=== PATIENT | female | born 2000 | race Caucasian/White ===

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

== ENCOUNTER 2020-08-18 10:46 | Emergency (ER) | payer BC, SELFPAY ==
--- NOTE | ~2020-08-18 | CT_ITS ---
EXAMINATION: CT abdomen pelvis w con DATE: 08/18/2020 12:51 INDICATION: Upper abdominal pain. Nausea. TECHNIQUE: Computed tomography (CT) of the abdomen and pelvis was performed with 100 mL Omnipaque 350 intravenous contrast. Automated exposure control and iterative reconstruction technique were employe d. The dose-length product was 631.74 mGy-cm. COMPARISON: None. FINDINGS: The visualized portions of the lung bases are clear without pneumonia or pleural effusion. The heart size is normal. No pericardial effusion. The liver, gallbladder, spleen, pancreas, adrenal glands, and kidneys are normal. There are no dilated loops of bowel. The appendix is normal. There ar e no pathologically enlarged lymph nodes. There is no free intraperitoneal fluid. There is subcutaneo us gas in the right buttock, which may be an injection site. The bones are unremarkable. IMPRESSION: 1. No etiology for the patient's symptoms. Reviewed, dictated and finalized at location A. LATION EXTRUDER OPERATOR
[2020-08-18 10:52] VITALS: BP 151/89; PULSE 100; RESP 17; TEMP 36.5; O2SAT 100
--- NOTE | 2020-08-18 11:05 | ED.ABDPAIN ---
HPI - Abdominal Pain General Chief Complaint: Abdominal Pain Stated Complaint: abd pain Time Seen by Provider: 08/18/20 11:05 History of Present Illness HPI narrative: Epigastric and LUQ pain for the past 2 weeks. Burning in quality. No radiation. Associated with nausea. One loose stool yesterday. Saw PCP 4 days ago and was started on Omeprazole without improvement. She does mention that she is currently missing a test to be here and seems quite anxious. Related Data Home Medications Medication Instructions Recorded Confirmed L norgest/e.estradiol-e.estrad 1 tablet PO DAILY 12/12/19 12/26/19 [Daysee] omeprazole magnesium [Prilosec OTC] 20 mg PO DAILY 12/12/19 12/26/19 Allergies Allergy/AdvReac Type Severity Reaction Status Date / Time Cat Dander Allergy Mild HIVES, Uncoded 08/18/20 11:04 ITCHING Review of Systems Review of Systems: All systems reviewed & are unremarkable except as noted in HPI and below Constitutional: Constitutional: Denies fever(s) Cardiovascular: Cardiovascular: Denies chest pain Respiratory: Respiratory: Denies dyspnea Gastrointestinal: Gastrointestinal: Reports abdominal pain, Denies constipation, Reports nausea and Denies vomiting Genitourinary: Genitourinary: Denies hematuria and Denies dysuria Comments: Dark urine Musculoskeletal: Musculoskeletal: Denies back pain Neurologic: Denies dizziness and Denies weakness [facility] Past Medical History Medical History (Updated 08/18/20 @ 13:10 by Anand Magdaleno MD) Asthma GERD (gastroesophageal reflux disease) Family History Family History Other Diabetes mellitus Family history of arthritis Hypertension Social History Social History Smoking status: Never smoker Alcohol intake: current Substance use: never Substance use type: does not use Gender identity (if verbalized by the patient): Female Exam Const: General: healthy appearing, no acute distress and alert Orientation/consciousness: patient oriented x3 HENMT: Head: normal to inspection Neck: Neck: normal visual inspection and no lymphadenopathy Chest: Chest palpation & inspection: no tenderness Resp: Effort & Inspection: normal respiratory effort Auscultation: clear to auscultation bilaterally, no rales, no rhonchi and no wheezes Cardio: Jugular venous distension: no JVD Rate: regular rate Rhythm: regular rhythm Heart sounds: no murmurs GI: Inspection: non-distended GI Palp: Yes Soft to palpation, Yes Tenderness to palpation present (GI) (LUQ, minmal), No Guarding due to palpation present (GI) and No Rebound tenderness present Skin: General skin exam: normal color Neuro: General: patient oriented x3, moves all extremities, no focal motor deficits and CN's II-XI intact bilaterally Speech: normal speech Extrem: General: normal to inspection and no edema Psych: Appearance: well kempt Affect: Anxious affect present Course Vital Signs Vital signs: Vital Signs Temperature 36.5 C 08/18/20 10:52 Pulse Rate 100 08/18/20 10:52 Respiratory Rate 17 08/18/20 10:52 Blood Pressure 151/89 H 08/18/20 10:52 Pulse Oximetry 100 08/18/20 10:52 Temperature 36.5 C 08/18/20 10:52 Pulse Rate 87 08/18/20 14:05 Respiratory Rate 18 08/18/20 14:05 Blood Pressure 117/78 08/18/20 14:05 Pulse Oximetry 100 08/18/20 14:05 MDM - Abdominal Pain MDM Narrative Medical decision making narrative: She reports no improvement. Tolerating PO. Differential Diagnosis Differential diagnosis: Likely constipation, gastroenteritis, pancreatitis and other (IBS, PUD) Medical Records Attestation: I reviewed the patient's medical records. Lab Data Attestation: I reviewed the patient's lab results. Result diagrams: 08/18/20 11:03 08/18/20 11:03 Labs: Lab Results 08/18/20 08/18/20 08/18/20
[2020-08-18 11:12] LABS: Basophils Percent Auto 0.6 % (0.2-1.2); Eosinophils Absolute Auto 0.1 K/mm3 (0-0.3); Eosinophils Percent Auto 1.4 % (0-4.4); Hematocrit 42.3 % (37.0-47.0); Hemoglobin 14.1 g/dL (12.0-15.0); Immature Granulocyte Absolute 0.01 K/mm3 (0.00-0.031); Immature Granulocyte Percent A 0.2 % (0-0.5); Lymphocytes Absolute Auto 2.37 K/mm3 (0.9-3.2); Lymphocytes Percent Auto 46.8 % (18.3-44.2); Mean Corpuscular HGB Conc 33.3 g/dl (32-36); Monocytes Absolute Auto 0.3 K/mm3 (0.1-0.6); Monocytes Percent Auto 5.5 % (2.6-8.5); Neutrophils Absolute Auto 2.3 K/mm3 (1.3-6.7); Neutrophils Percent Auto 45.5 % (45.5-73.1); Platelet Count Result 224 k/mm3 (150-375); Red Cell Distribution Width 11.9 % (11.5-14.5); White Blood Count 5.1 K/mm3 (4.5-10.0)
[2020-08-18 11:26] LABS: Add Urine Microscopic? YES; Appearance Urine Cloudy (Clear); Bacteria Urine Trace /hpf; Bilirubin Urine Negative (Negative); Blood Urine Negative (Negative); Color Urine Yellow (Yellow); Glucose Urine UA Negative (Negative); Ketones Urine Negative (Negative); Leukocyte Esterase Ur 3+ LEU/UL (Negative); Mucus Urine Rare /lpf; Nitrate Urine Negative (Negative); Protein Urine Negative (Negative); Specific Grav Ur 1.012 (1.001-1.035); Squamous Epithelial Cell Urine Few /hpf (Few); Urobilinogen Urine Negative mg/dL (<2.0); WBC Urine 0-3 /hpf
[2020-08-18 11:28] LABS: Alanine Aminotransferase 40 U/L (4-35); Albumin Level 4.7 g/dL (3.5-5.1); Alkaline Phosphatase 55 U/L (38-126); Anion Gap 8 mmol/L (8-16); Aspartate Amino Transferase 35 U/L (14-36); Bilirubin,Total 0.6 mg/dL (0.2-1.3); Blood Urea Nitrogen 8 mg/dL (7-17); Calcium 9.6 mg/dL (8.4-10.2); Carbon Dioxide 26 mmol/L (22-30); Chloride 107 mmol/L (98-107); Estimated CRCL calculation 112 ml/min; Estimated Glomerular Filt Rate > 60; Glucose 101 mg/dL (65-105); Lipase 45 U/L (23-300); Potassium 4.2 mmol/L (3.4-5.0); Sodium 141 mmol/L (137-145)
[2020-08-18] MEDS: SODIUM CHLORIDE 0.9% IV 1,000 ML 999 ML IV CONT (11:29)
[2020-08-18] MEDS: DICYCLOMINE HCL INJ 20 MG/2 ML VIAL IM (11:29)
[2020-08-18] MEDS: ONDANSETRON INJ 4 MG/2 ML VIAL IV PUSH (11:35)
[2020-08-18] MEDS: PANTOPRAZOLE SODIUM IV 40 MG VIAL IV PUSH (13:12)
[2020-08-18 14:05] VITALS: BP 117/78; PULSE 87; RESP 18; O2SAT 100
== END 2020-08-18 14:06 | disposition home or self-care (01) ==
PROVIDERS: Emergency Medicine; Emergency Provider Emergency Medicine; PCP Family Medicine
DX: R10.13 Epigastric pain (principal); J45.909 Unspecified asthma, uncomplicated; K21.9 Gastro-esophageal reflux disease without esophagitis
CPT/HCPCS: 36415; 74177; 80053; 81001; 81025; 83690; 85025; 96361; 96372; 96374; 96375; 99284; A9270; C9113; J0500; J2405; J7030; Q9967

== ENCOUNTER → 2020-08-23 01:25 | Outpatient (CLI) | payer BC, SELFPAY ==
[2020-08-23 20:38] LABS: SARS-CoV-2 RNA PCR Negative
== END ==
PROVIDERS: PCP Family Medicine; Visit Provider Internal Medicine Gastroenterology
DX: Z01.812 Encounter for preprocedural laboratory examination (principal); Z20.822 Contact with and (suspected) exposure to COVID-19
CPT/HCPCS: C9803; U0003; U0005

== ENCOUNTER 2020-08-27 01:24 | Day surgery (SDC) | payer BC, SELFPAY ==
[2020-08-22 10:19] VITALS: BMI 31.1
[2020-08-27 12:29] VITALS: BP 123/75; PULSE 104; RESP 16; TEMP 36.8; O2SAT 98; BMI 31.0
[2020-08-27] MEDS: LACTATED RINGERS 1,000 ML 150 ML IV CONT (12:36)
--- NOTE | 2020-08-27 13:05 | WPDANESEPPF ---
Anes - Initial Pre Proc Eval Procedure: Operation Date: 08/27/20 13:00 Proposed Procedures p Esophagogastroduodenoscopy - Gm Ha MD Date/Time: 08/27/20 13:05 Surgeon: Gm Ha MD Pre Op Diagnosis: left upper quad pain Patient Data Age: 20 Gender: F Height: 5 ft 7 in Weight: 89.9 kg Last Vital Signs Temp 36.8 C 08/27/20 12:29 Pulse 104 H 08/27/20 12:29 Resp 16 08/27/20 12:29 BP 123/75 08/27/20 12:29 Pulse Ox 98 08/27/20 12:29 Allergies Allergy/AdvReac Type Severity Reaction Status Date / Time Cat Dander Allergy Mild HIVES, Uncoded 08/27/20 12:28 ITCHING Home Medications Medication Instructions Recorded Confirmed Type L norgest/e.estradiol-e.estrad 1 tablet PO DAILY 12/12/19 08/22/20 History [Daysee] omeprazole magnesium [Prilosec OTC] 20 mg PO DAILY 12/12/19 08/22/20 History albuterol sulfate INHALATION PRN PRN 08/22/20 History Patient hx anesthesia problems: none Family hx anesthesia problems: none PMFSH Past Medical History Medical History Asthma GERD (gastroesophageal reflux disease) Surgical History Surgical History (Updated 08/27/20 @ 13:06 by Gene Martin MD) H/O laparoscopy Family History Family History Other Diabetes mellitus Family history of arthritis Hypertension Social History Social History Smoking status: Never smoker Alcohol intake: current Substance use: never Substance use type: does not use Gender identity (if verbalized by the patient): Female Anes - Eval Final PreProcedure Day of Procedure 08/27/20 13:05 Patient weight: obese Heart: regular rate and rhythm Lungs: clear to auscultation Airway: Mallampati scale class II Neurological: alert and oriented Last oral intake: >/= 8 hours ASA classification: II Emergent: no Anesthetic plan: proceed Anesthesia type and monitoring: general GIVS and standard monitoring Informed Consent: The patient's anesthetic plan and its attendant risks and benefits were discussed with the patient/family/POA. Questions were solicited and answers provided to the satisfaction of the patient/family/POA.
--- NOTE | 2020-08-27 14:07 | PM.HPGS ---
History of Present Illness History of Present Illness Consent: Risks, benefits, and alternatives have been discussed and questions answered. Patient agrees to proceed with procedure. Chief complaint: left upper quad pain Narrative: Екатерина Anne is a 20 year old female with epigastric pain and post-prandial nausea for a month, recent ER visit with normal CT scan, denies smoking. Minimal improvement with omeprazole bid. Previous surgery was laparoscopy for endometriosis. Review of Systems Constitutional: Constitutional: Denies headache(s) and Denies weakness Eyes: Eyes: Denies blurry vision ENT: Reports Normal hearing present, Denies headache(s) and Denies neck pain Cardiovascular: Cardiovascular: Denies chest pain and Denies dyspnea Respiratory: Respiratory: Denies dyspnea Gastrointestinal: Gastrointestinal: Reports no additional gastrointestinal complaints Genitourinary: Genitourinary: Denies dysuria Musculoskeletal: Musculoskeletal: Denies neck pain Integumentary/Breasts: Skin/Breast: Denies dry skin Neurologic: Reports Normal hearing present, Denies headache(s) and Denies weakness Psychiatric: Psychiatric: Denies anxiety Endocrine: Endocrine: Denies change in body appearance Hematologic/Lymphatic: Hematologic/Lymphatic: Denies easy bleeding Allergic/Immunologic: Allergic/Immunologic: Denies urticaria PMFSH Past Medical History Medical History (Updated 08/27/20 @ 14:09 by Gm Ha MD) Asthma Epigastric pain GERD (gastroesophageal reflux disease) Surgical History Surgical History (Updated 08/27/20 @ 13:06 by Gene Martin MD) H/O laparoscopy Family History Family History Other Diabetes mellitus Family history of arthritis Hypertension Social History Social History Smoking status: Never smoker Alcohol intake: current Substance use: never Substance use type: does not use Gender identity (if verbalized by the patient): Female Meds Home Medications and Allergies Home Medications Medication Instructions Recorded Confirmed Type L norgest/e.estradiol-e.estrad 1 tablet PO DAILY 12/12/19 08/22/20 History [Daysee] omeprazole magnesium [Prilosec OTC] 20 mg PO DAILY 12/12/19 08/22/20 History albuterol sulfate INHALATION PRN PRN 08/22/20 History Allergies Allergy/AdvReac Type Severity Reaction Status Date / Time Cat Dander Allergy Mild HIVES, Uncoded 08/27/20 12:28 ITCHING Vital Signs Vital Signs - 24 hr 08/27/20 12:29 Temperature 98.3 F Pulse Rate 104 H Respiratory Rate 16 Blood Pressure 123/75 Pulse Oximetry 98 Exam Const: General: comfortable and no acute distress HENMT: General nose exam: Normal nares present Eyes: General: appearance normal, both eyes and all related structures Neck: Neck: no JVD Resp: Auscultation: clear to auscultation bilaterally Cardio: Rate: regular rate Rhythm: regular rhythm GI: Inspection: non-distended GI Palp: Yes Soft to palpation Skin: General skin exam: normal color Neuro: General: gait normal Speech: normal speech Extrem: General: normal to inspection Psych: Mental Status: mental status grossly normal Assessment and Plan Assessment and plan (1) Epigastric pain: Code(s): R10.13 - Epigastric pain Status: Acute Assessment and Plan: proceed with egd
[2020-08-27] MEDS: BENZOCAINE (*SP) 60 ML SPRAY CAN (HURRICAINE) 1 SPRAY MUCOUS MEM (14:18)
[2020-08-27 14:30] VITALS: BP 114/70; PULSE 87; RESP 24; O2SAT 99
[2020-08-27 14:40] VITALS: BP 121/83; PULSE 111; RESP 26; O2SAT 100
[2020-08-27 14:50] VITALS: BP 116/80; PULSE 73; RESP 27; O2SAT 100
== END 2020-08-27 15:10 | disposition home or self-care (01) ==
PROVIDERS: PCP Family Medicine; Visit Provider Internal Medicine Gastroenterology
PROC: 0DJ08ZZ Inspection of Upper Intestinal Tract, Via Natural or Artificial Opening Endoscopic (ICD-10-PCS; CPT 43235; principal; 2020-08-27 13:00)
DX: K29.50 Unspecified chronic gastritis without bleeding (principal); R11.0 Nausea; R10.13 Epigastric pain; R10.30 Lower abdominal pain, unspecified; K21.9 Gastro-esophageal reflux disease without esophagitis; J45.909 Unspecified asthma, uncomplicated; E66.9 Obesity, unspecified; Z68.31 Body mass index [BMI] 31.0-31.9, adult
CPT/HCPCS: 43239; 88305; J2704; J7120

== ENCOUNTER 2020-08-29 07:44 | Outpatient (CLI) | payer BC, SELFPAY ==
--- NOTE | ~2020-08-29 | US_ITS ---
US right upper quadrant INDICATION: Abdomen pain, nausea and vomiting PROCEDURE: Realtime right upper abdominal ultrasound. COMPARISON: No prior studies for comparison. FINDINGS: The pancreas is normal without focal mass or pancreatic ductal dilation. Liver echotexture is normal without focal mass or intrahepatic biliary dilatation. There is normal directional flow i n the portal vein. There are gallstones. Common bile duct measures 4 mm. No sonographic Ibarra's sign. IMPRESSION: 1: Cholelithiasis. Reviewed, dictated and finalized at location B. S CLEANER IMPRESSION: 1: Cholelithiasis.
--- NOTE | ~2020-08-29 | NM_ITS ---
HEPATOBILIARY SCAN Procedure: Hepatobiliary scan performed following IV administration 4.8 mCi Tc 99m Choletec. At 60 m inutes 1.5 mcg CCK administered IV for evaluation of gallbladder ejection fraction. Indication:Generalized abdominal pain Comparison: Ultrasound dated 08/29/[address] dated 08/18/2020 Findings: There is normal radiotracer uptake in the liver parenchyma with prompt excretion into the b iliary tract. Gallbladder visualized at 35 minutes. Small bowel visualized at 25 minutes. Normal g allbladder ejection fraction measures 59% (normal 10-90%, but most patients with gallbladder dysfunct ion have GBEF of less than 35%) Impression: 1: Normal hepatobiliary scan. Reviewed, dictated and finalized at location B. TIVE ASSISTANT Impression: 1: Normal hepatobiliary scan.
== END 2020-08-29 07:45 | disposition home or self-care (01) ==
LOC: ANHIMG 07:48
PROVIDERS: PCP Family Medicine; Visit Provider Nurse Practitioner
DX: R68.81 Early satiety (principal); R63.0 Anorexia; K80.20 Calculus of gallbladder without cholecystitis without obstruction
CPT/HCPCS: 76705; 78227; A9537; J2805

== ENCOUNTER → 2020-09-06 06:30 | Outpatient (CLI) | payer BC, SELFPAY ==
[2020-09-06 19:11] LABS: SARS-CoV-2 RNA PCR Negative
== END ==
PROVIDERS: PCP Family Medicine; Visit Provider Surgery
DX: Z01.812 Encounter for preprocedural laboratory examination (principal); Z20.822 Contact with and (suspected) exposure to COVID-19
CPT/HCPCS: C9803; U0003; U0005

== ENCOUNTER 2020-09-06 08:37 | Outpatient (CLI) | payer BC, SELFPAY ==
[2020-09-06 09:26] LABS: Amylase 72 U/L (30-110)
== END 2020-09-06 08:38 | disposition home or self-care (01) ==
PROVIDERS: PCP Family Medicine; Visit Provider Surgery
DX: K80.20 Calculus of gallbladder without cholecystitis without obstruction (principal); Z01.818 Encounter for other preprocedural examination
CPT/HCPCS: 36415; 82150; 86850; 86900; 86901

== ENCOUNTER 2020-09-10 01:23 | Day surgery (SDC) | payer BC, SELFPAY ==
[2020-09-05 16:43] VITALS: BMI 30.9
--- NOTE | 2020-09-09 11:05 | WPDANESEPPF ---
Anes - Initial Pre Proc Eval Procedure: Operation Date: 09/10/20 10:30 Proposed Procedures p Laparoscopic Cholecystectomy, Possible Open - Jonathon Weathers DO Date/Time: 09/09/20 11:05 Surgeon: Jonathon Weathers DO Pre Op Diagnosis: Symptomatic Cholelithiasis Patient Data Age: 20 Gender: F Height: 1.7 m Weight: 89.5 kg Allergies Allergy/AdvReac Type Severity Reaction Status Date / Time Cat Dander Allergy Mild HIVES, Uncoded 09/05/20 16:43 ITCHING Home Medications Medication Instructions Recorded Confirmed Type L norgest/e.estradiol-e.estrad 1 tablet PO DAILY 12/12/19 09/05/20 History [Daysee] albuterol sulfate 2 puff INHALATION PRN PRN 08/22/20 09/05/20 History Patient hx anesthesia problems: none Family hx anesthesia problems: none [facility] Past Medical History Medical History (Updated 09/09/20 @ 11:05 by Macho Redmond DO) Asthma Epigastric pain GERD (gastroesophageal reflux disease) Hx of gastric ulcer 2018 Panic attack Surgical History Surgical History H/O laparoscopy History of esophagogastroduodenoscopy (EGD) [place] teeth extracted Family History Family History Father Hypertension Diabetes mellitus Mother Hypertension Depression Grandparent Diabetes mellitus Heart disease Cancer Hypertension Other Family history of arthritis Social History Social History Smoking status: Never smoker Substance use: never Substance use type: does not use Gender identity (if verbalized by the patient): Female Spiritual care concerns: No Anes - Eval Final PreProcedure Day of Procedure 09/09/20 11:05 Patient weight: obese Heart: regular rate and rhythm Lungs: clear to auscultation and normal air movement Airway: Mallampati scale class 1 Neurological: alert and oriented Last oral intake: >/= 8 hours ASA classification: III Emergent: no Anesthetic plan: proceed Anesthesia type and monitoring: general ETT and standard monitoring Informed Consent: The patient's anesthetic plan and its attendant risks and benefits were discussed with the patient/family/POA. Questions were solicited and answers provided to the satisfaction of the patient/family/POA.
[2020-09-10] VITALS (9 sets, daily range): BP systolic 107–126; BP diastolic 60–80; PULSE 71–109; RESP 12–20; TEMP 36.4–36.6; O2SAT 100
[2020-09-10] MEDS: KETOROLAC 15 MG/ML VIAL (*BKC) IV PUSH (09:17)
[2020-09-10] MEDS: LACTATED RINGERS 1,000 ML 30 ML IV CONT ×2 (09:18→13:25)
--- NOTE | 2020-09-10 11:56 | WPDHPUPDATE1 ---
History and Physical Update Update Date/Time: 09/10/20 11:56 History and Physical has been reviewed, including an updated exam of the patient. There are NO changes in the patient's condition. Risks, benefits, and alternatives have been discussed and questions answered. Patient agrees to proceed with procedure.
--- NOTE | 2020-09-10 12:01 | SUR.PREOP ---
Jasiel aware that patient refused tylenol, no further orders. also aware that patient has earring in left lobe.
[2020-09-10] MEDS: ceFAZolin 2 GM/D5W 50 ML 2 GM/50 ML BAG IVPB (12:14)
[2020-09-10] MEDS: BUPIVACAINE/EPINEPHRINE 0.5% 30 ML VIAL INFILTRATE (12:43)
--- NOTE | 2020-09-10 13:21 | PM.PROC ---
Procedure Note - Detailed Date of procedure: 09/10/20 Pre-op diagnosis: Symptomatic Cholelithiasis Post-op diagnosis: same Procedure performed: Laparoscopic Cholecystectomy Description of procedure: Procedure as well as risks, benefits, and alternatives were discussed with patient. Written consent was obtained and placed in chart prior to procedure. The patient was brought back to surgical suite. Patient was placed in supine position on operating table. Time-out was done to confirm patient and procedure. Patient was then intubated by the anesthesia department. Abdomen was prepped and draped in sterile fashion using chlorhexidine prep. 0.5% bupivacaine with epinephrine was infiltrated at each site of incision. An 11 millimeter vertical incision was made at the inferior portion of the umbilicus using a 15 blade scalpel. Blunt dissection was carried down to the linea alba. The linea alba was then incised using a 15 blade scalpel. The peritoneum was then bluntly entered. An 11 millimeter trocar was inserted and cabon dioxied insuflation was used to create a pneumoperitoneum. The camera was inserted and the abdomen was inspected. The patient was placed in reverse Trendelenberg position and rotated slightly to the left. A 5 millimeter incision was made in the epigastric region, and a 5 millimeter trocar was inserted under direct visualization. Two 5 millimeter incisions were made in the right upper quadrant, and two 5 millimeter trocars were inserted under direct visualization. The gallbladder was identified and grasped at the fundus and retracted superiorly. It was then grasped at the infundibulum retracted laterally. Careful dissection around the neck of the gallbladder was performed using blunt dissection with a [place] grasper and hook electrocautery. The cystic duct was identified, and a window was created behind it. The cystic artery was also identified and a window was created behind it. The critical view of safety was identified, visualizing the cystic duct running directly into the neck of the gallbladder, and the cystic artery running directly into the wall of the gallbladder. A 5 millimeter clip cma or lpn was then used to place 2 clips proximally and 1 clip distally on both the cystic duct and cystic artery. They were then both transected using endoscopic scissors. Once safely away from the nelson hepatitis, the gallbladder was dissected free from the liver bed using hook electrocautery. Hemostasis was achieved along the way. The gallbladder was removed completely and then removed through the umbilical port. The liver bed was then inspected. Hemostasis appeared adequate, and our clips appeared secure. The area was gently irrigated with sterile saline. No other abnormalities were seen. The patient was flattened out in bed, and 1 final inspection was made around the abdominal cavity. The ports were then removed under direct visualization, the camera was removed, and the pneumoperitoneum was released. The fascia of the umbilical incision was approximated using an 0 Vicryl [id number] suture. The skin of the incisions was approximated using 4-0 Monocryl subcuticular sutures. Exofin glue was applied on top. The patient was then awakened from anesthesia, extubated, and transferred to recovery. Anesthesia: GETA and local (0.5% bupivicaine with epinephrine) Surgeon: Jonathon Weathers DO Estimated blood loss (mL): 10 Pathology: yes (gallbladder) Complications: No immediate complications Condition: stable Disposition: same day Findings: This is a 20-year-old woman presents with right quadrant pain for past month. She has had increasing problems with pain after eating. She previously went to the emergency department and CT abdomen and pelvis was normal at that time. A follow-up gallbladder ultrasound showed evidence of cholelithiasis. She states that she has lost about 10 lb since all of the started and she can't tolerate eating much food a
[2020-09-10] MEDS: ONDANSETRON INJ 4 MG/2 ML VIAL IV PUSH (13:39)
[2020-09-10] MEDS: diphenhydrAMINE HCl INJ 50 MG/ML VIAL 25 MG IV PUSH (13:53)
[2020-09-10] MEDS: SCOPOLAMINE 1.5 MG PATCH TRANSDERM (13:53)
[2020-09-10] MEDS: fentaNYL CITRATE INJ (*CRX) 100 MCG/2 ML VIAL 25 MCG IV PUSH (14:10)
== END 2020-09-10 15:20 | disposition home or self-care (01) ==
PROVIDERS: PCP Family Medicine; Visit Provider Surgery
PROC: 0FT44ZZ Resection of Gallbladder, Percutaneous Endoscopic Approach (ICD-10-PCS; CPT 47562; principal; 2020-09-10 10:30)
DX: K80.10 Calculus of gallbladder with chronic cholecystitis without obstruction (principal); J45.909 Unspecified asthma, uncomplicated; Z87.11 Personal history of peptic ulcer disease; E66.9 Obesity, unspecified; Z68.30 Body mass index [BMI] 30.0-30.9, adult
CPT/HCPCS: 47562; 88304; A9270; J0690; J1100; J1200; J1885; J2250; J2405; J2704; J2710; J3010; J7030; J7120

== ENCOUNTER 2021-02-16 10:04 | Emergency (ER) | payer BC, SELFPAY ==
[2021-02-16 10:30] VITALS: BP 134/81; PULSE 100; RESP 18; TEMP 37.2; O2SAT 98
--- NOTE | 2021-02-16 10:49 | ED.EAR ---
HPI - Ear Problem General Chief complaint: Ear Stated complaint: Lt ear Time Seen by Provider: 02/16/21 10:50 Source: patient and RN notes reviewed Mode of arrival: ambulatory Limitations: no limitations History of Present Illness HPI Narrative: 20-year-old female presents with concern for possible infection of a piercing in the scapha of her left ear. Reports she has had this piercing since July and has had problems with continued infection. Reports she has been using Neosporin and has tried to remove the earring but was afraid to remove it due to possible infection. She denies any spreading of redness, swelling, body aches, chills, sweats, fever denies purulent discharge. MD Complaint: ear pain Related Data Home Medications Medication Instructions Recorded Confirmed L norgest/e.estradiol-e.estrad 1 tablet PO DAILY 12/12/19 02/16/21 [Daysee] Allergies Allergy/AdvReac Type Severity Reaction Status Date / Time Cat Dander Allergy Mild HIVES, Uncoded 02/16/21 10:38 ITCHING Review of Systems Review of Systems: CONSTITUTIONAL: Denies malaise, chills, sweats, or fever. ENT: Denies otalgia SKIN: Reports redness, mild swelling, tenderness to scapha of the left ear MUSCULOSKELETAL: Denies back pain, joint pain, or myalgia. NEUROLOGIC: Denies numbness, weakness, or headache. PSYCHIATRIC: Denies anxiety or depression. All systems reviewed & are unremarkable except as noted in HPI and below PMFSH Past Medical History Medical History Asthma Epigastric pain GERD (gastroesophageal reflux disease) Hx of gastric ulcer 2018 Panic attack Surgical History Surgical History H/O laparoscopy History of esophagogastroduodenoscopy (EGD) Hx laparoscopic cholecystectomy 09/10/20 [place] teeth extracted Family History Family History Father Hypertension Diabetes mellitus Mother Hypertension Depression Grandparent Diabetes mellitus Heart disease Cancer Hypertension Other Family history of arthritis Social History Social History Smoking status: Never smoker Alcohol use details: occasionally Substance use: never Substance use type: does not use Gender identity (if verbalized by the patient): Female Spiritual care concerns: No Comments At time of signature, agree with nursing past medical, surgical, social and family history. There is no relevant family history pertinent to the presenting complaint Exam Narrative: GENERAL: Well-appearing, well-nourished, and in no acute distress. HEAD: Normocephalic, atraumatic. EYES: PERRLA, conjunctivae clear, and EOMI. ENT: Mucous membranes moist. Left TM pearly segal with sharp light reflex auditory canal unremarkable NECK: Supple. No lymphadenopathy CHEST: Clear to auscultation. No respiratory distress. HEART: Regular rate and rhythm. SKIN: Warm, dry. Left scapha piercing with hearing intact, mild amount of edema and erythema to the posterior ear, no fluctuation, purulent drainage, no other swelling or erythema noted. NEURO: Alert and oriented x3. PSYCH: Normal mood and affect Course Course Emergency Course: Patient reports she is not concerned about keeping the piercing intact, patient removed the earring in the office without incident. Discussed treating for infection and gave anticipatory guidance. Patient is aware of diagnosis, understands and agrees to treatment plan. Anticipatory guidance given. Patient agrees to follow-up as directed and is aware of reasons to seek care at the emergency department. Portions of this record may have been created with voice recognition software Vital Signs Vital signs: Vital Signs Temperature 98.9 F 02/16/21 10:30 Pulse Rate 100 02/16/21 10:30 Respiratory Rate 18 08/0
== END 2021-02-16 11:08 | disposition home or self-care (01) ==
PROVIDERS: Emergency Provider Nurse Practitioner; PCP Family Medicine
DX: H60.12 Cellulitis of left external ear (principal); J45.909 Unspecified asthma, uncomplicated; K21.9 Gastro-esophageal reflux disease without esophagitis
CPT/HCPCS: 99213; G0463

== ENCOUNTER 2021-10-12 12:45 | Emergency (ER) | payer BC, SELFPAY ==
[2021-10-12 13:35] VITALS: BP 128/71; PULSE 83; RESP 18; TEMP 36.6; O2SAT 100
--- NOTE | 2021-10-12 14:23 | ED.SKABFB ---
HPI - Skin/Abscess/Foreign Bdy General Chief complaint: Skin/Abscess/Foreign Body Stated complaint: rash on both ears Time Seen by Provider: 10/12/21 14:23 Source: patient and RN notes reviewed Mode of arrival: ambulatory Limitations: no limitations History of Present Illness HPI narrative: 21 year old female who [facility] with complaints of rash with irritation to the bilateral earlobes around her posterior ear piercing.Patient states that piercing were done originally in April of 2021. She states that she noticed in August dry skin and some discoloration to her whole earlobes and changed to hypoallergenic earrings and has noticed some improvement. She states that she has been putting moisturizer to earlobe areas, does not take earrings out when she showers or when she sleeps. MD complaint: rash Tetanus up to date: yes Related Data Home Medications Medication Instructions Recorded Confirmed L norgest/e.estradiol-e.estrad 1 tablet PO DAILY 12/12/19 10/12/21 [Daysee] Allergies Allergy/AdvReac Type Severity Reaction Status Date / Time Cat Dander Allergy Mild HIVES, Uncoded 10/12/21 13:51 ITCHING Review of Systems Review of Systems: CONSTITUTIONAL: Denies fever, chills, or sweats. EYES: Denies visual changes, redness, or discharge. ENT: Denies rhinorrhea, congestion, sore throat, or otalgia. CARDIOVASCULAR: Denies chest pain, palpitations, or edema. RESPIRATORY: Denies cough or dyspnea. GASTROINTESTINAL: Denies abdominal pain, nausea, vomiting, or diarrhea. GENITOURINARY: Denies dysuria or hematuria. SKIN: rash with irritation to bilateral ear lobes MUSCULOSKELETAL: Denies back pain, joint pain, or myalgia. NEUROLOGIC: Denies headache, numbness, or weakness. PSYCHIATRIC:Positive history of anxiety or depression. All systems reviewed & are unremarkable except as noted in HPI and below PMFSH Past Medical History Medical History Asthma Epigastric pain GERD (gastroesophageal reflux disease) Hx of gastric ulcer 2018 Panic attack Surgical History Surgical History H/O laparoscopy History of esophagogastroduodenoscopy (EGD) Hx laparoscopic cholecystectomy 09/10/20 [place] teeth extracted Family History Family History Father Hypertension Diabetes mellitus Mother Hypertension Depression Grandparent Diabetes mellitus Heart disease Cancer Hypertension Other Family history of arthritis Social History Social History Smoking status: Never smoker Alcohol use details: occasionally Substance use: never Substance use type: does not use Gender identity (if verbalized by the patient): Female Spiritual care concerns: No Comments At time of signature, agree with nursing past medical, surgical, social and family history. There is no relevant family history pertinent to the presenting complaint Exam Narrative: GENERAL: Well-appearing, well-nourished, and in no acute distress. HEAD: Normocephalic, atraumatic. EYES: PERRLA and EOMI. ENT: Nares clear, no rhinorrhea or epistaxis. Mucous membranes moist.TM's normal with noted good light reflex, no ear canal irritation, throat pink with no lesions or exudates, tonsil not enlarged NECK: Supple.no lymphadenopathy CHEST: Clear to auscultation. No respiratory distress.SAO2 100% on room air HEART: Regular rate and rhythm. No murmur heard. Normal peripheral pulses. ABDOMEN: Soft, nontender, nondistended, normal active bowel sounds. EXTREMITIES: Normal range of motion. No edema. SKIN: Warm, dry, flaky irritation rash around posterior bilateral ear piercing, no drainage noted or any acute pain of sites, mild erythema NEURO: No focal deficits. Alert and oriented x3. Course Course Level of Care: Express Care V
--- NOTE | 2021-10-12 14:50 | ED.SKABFB ---
HPI - Skin/Abscess/Foreign Bdy General Chief complaint: Skin/Abscess/Foreign Body Stated complaint: rash on both ears Time Seen by Provider: 10/12/21 14:23 Source: patient and RN notes reviewed Mode of arrival: ambulatory Limitations: no limitations History of Present Illness MD complaint: rash Related Data Home Medications Medication Instructions Recorded Confirmed L norgest/e.estradiol-e.estrad 1 tablet PO DAILY 12/12/19 10/12/21 [Daysee] Allergies Allergy/AdvReac Type Severity Reaction Status Date / Time Cat Dander Allergy Mild HIVES, Uncoded 10/12/21 13:51 ITCHING PMFSH Past Medical History Medical History Asthma Epigastric pain GERD (gastroesophageal reflux disease) Hx of gastric ulcer 2018 Panic attack Surgical History Surgical History H/O laparoscopy History of esophagogastroduodenoscopy (EGD) Hx laparoscopic cholecystectomy 09/10/20 [place] teeth extracted Family History Family History Father Hypertension Diabetes mellitus Mother Hypertension Depression Grandparent Diabetes mellitus Heart disease Cancer Hypertension Other Family history of arthritis Social History Social History Smoking status: Never smoker Alcohol use details: occasionally Substance use: never Substance use type: does not use Gender identity (if verbalized by the patient): Female Spiritual care concerns: No Course Vital Signs Vital signs: Vital Signs Temperature 36.6 C 10/12/21 13:35 Pulse Rate 83 10/12/21 13:35 Respiratory Rate 18 10/12/21 13:35 Blood Pressure 128/71 10/12/21 13:35 Pulse Oximetry 100 10/12/21 13:35 Temperature 36.6 C 10/12/21 13:35 Pulse Rate 83 10/12/21 13:35 Respiratory Rate 18 10/12/21 13:35 Blood Pressure 128/71 10/12/21 13:35 Pulse Oximetry 100 10/12/21 13:35 Discharge Plan Discharge Clinical Impression: Cellulitis Qualifiers: Site of cellulitis: unspecified site Qualified Code(s): L03.90 - Cellulitis, unspecified Patient Disposition: Home, Self-Care Condition: Stable Instructions: Antibiotic Form, Cellulitis (ED) Additional Instructions: Clean ear lobes daily with antibacterial soap pat dry watch for any increase infection--redness, swelling, drainage, Tylenol or ibuprofen for any fever pain follow up with PCP in 7-10 days for a wound check recheck if develop fever, chills, increasing symptom Go to the ER if your symptoms become worse of if ANY new symptoms develop Apply mupirocin ointment to earlobes twice daily for the next 10-14 days If your symptoms persist, change or worsen significantly before you can contact your personal physician then please, without delay, go to the emergency department for further evaluation. Follow-up with PCP in 7-10 days or sooner if needed Follow up with PCP soon in regards to your blood pressure which is elevated above threshold for referral. Blood pressure above 120/80 may indicate pre-hypertension. Blood pressure 128/71 Prescriptions: New mupirocin 2 % ointment 1 applic topical BID Qty: 15 RF: 0 No Action L norgest/e.estradiol-e.estrad [Daysee] 0.15 mg-30 mcg (84)/10 mcg (7) Tablets,Dose Pack,3 Month 1 tablet PO DAILY RF: 0 Follow-up/Referrals: Joe Morales MD [Primary Care Provider] - Time of Disposition: 14:48 Quality Sam Coma Scale Eyes: Open Verbal: Oriented and Alert Motor: Follows Commands Sam Coma Total Score: 15
== END 2021-10-12 14:52 | disposition home or self-care (01) ==
PROVIDERS: Emergency Provider Registered Nurse; PCP Family Medicine
DX: H60.13 Cellulitis of external ear, bilateral (principal); J45.909 Unspecified asthma, uncomplicated; K21.9 Gastro-esophageal reflux disease without esophagitis
CPT/HCPCS: 99213; G0463